=== PATIENT | male | born 1960 | race Caucasian/White ===

== ENCOUNTER → 2017-04-16 | Outpatient (CLI) | payer OTHER | END | disposition home or self-care (01) | LOC: KCIC 11:52 | DX: J84.10 Pulmonary fibrosis, unspecified (principal); F17.200 Nicotine dependence, unspecified, uncomplicated | CPT/HCPCS: 71046 ==

== ENCOUNTER → 2017-07-27 | Outpatient (CLI) | payer OTHER ==
[2017-07-27] MEDS: IOHEXOL 300 MG/ML 100ML VIAL. IV (11:25)
== END | disposition home or self-care (01) ==
LOC: KCIC CT 10:52
DX: J43.9 Emphysema, unspecified (principal); F17.200 Nicotine dependence, unspecified, uncomplicated
CPT/HCPCS: 71260; Q9967

== ENCOUNTER → 2017-08-09 | Day surgery (SDC) | payer OTHER ==
[~2017-08-09] MED LIST: PROPOFOL 20 ML IV
[2017-08-09] MEDS: ALBUTEROL SULFATE 2.5 MG/3 ML NEBU. IH (12:27)
[2017-08-09] MEDS: IV RINGERS,LACTATED 1000ML 1,000 ML IV (12:35)
[2017-08-09 12:47] LABS: ADD MAN DIFF? NO
[2017-08-09 12:55] LABS: BASO # 0.1 x10^3/uL (0.0-0.2); BASO % 1 % (0-3); EOS # 0.4 x10^3/uL (0.0-0.7); EOS % 5 % (0-3); LYMPH # 2.3 x10^3/uL (1.0-4.8); LYMPH % 30 % (24-48); MEAN CORPUSCULAR HEMOGLOBIN 30 pg (25-35); MEAN CORPUSCULAR HGB CONC 35 g/dL (31-37); MEAN CORPUSCULAR VOLUME 86 fL (79-100); MONO # 0.8 x10^3/uL (0.0-1.1); MONO % 10 % (0-9); NEUT # 4.1 x10^3uL (1.8-7.7); NEUT % 54 % (31-73); PLATELET COUNT 326 x10^3/uL (140-400); RED BLOOD COUNT 4.32 x10^6/uL (4.30-5.70); RED CELL DISTRIBUTION WIDTH 13.5 % (11.5-14.5); WHITE BLOOD COUNT 7.6 x10^3/uL (4.0-11.0)
[2017-08-09 13:09] LABS: PARTIAL THROMBOPLASTIN TIME 27 SEC (24-38); PROTHROMBIN TIME PATIENT 12.6 SEC (11.7-14.0)
== END | disposition home or self-care (01) ==
LOC: SURG 11:53
DX: C34.91 Malignant neoplasm of unspecified part of right bronchus or lung (principal); F32.9 Major depressive disorder, single episode, unspecified; F41.9 Anxiety disorder, unspecified; Z98.890 Other specified postprocedural states; Z87.891 Personal history of nicotine dependence
CPT/HCPCS: 31622; 31623; 31624; 31625; 31629; 36415; 85025; 85610; 85730; 88104; 88112; 88173; 88305; 88341; 88342; 94640; J2704; J7613

== ENCOUNTER → 2017-08-23 | Outpatient (CLI) | payer OTHER ==
[2017-08-23] MEDS: GADOBUTROL 7.5 MMOL/7.5 ML VIAL IV (09:50)
== END | disposition home or self-care (01) ==
LOC: MRI 08:31
DX: Z13.5 Encounter for screening for eye and ear disorders (principal); C34.90 Malignant neoplasm of unspecified part of unspecified bronchus or lung; R59.9 Enlarged lymph nodes, unspecified
CPT/HCPCS: 70030; 70553; 78815; A9552; A9585

== ENCOUNTER → 2017-08-27 | Outpatient (CLI) | payer OTHER ==
[~2017-08-27] MED LIST changes: +LIDOCAINE 2%/EPI 1:100,000 20 ML VIAL.; +MIDAZOLAM HCL/PF 5 MG/5 ML VIAL.; -PROPOFOL 20 ML IV; +fentaNYL PF VIAL 100 MCG/2 ML VIAL
[2017-08-27 07:33] LABS: ADD MAN DIFF? NO
[2017-08-27 07:41] LABS: BASO # 0.1 x10^3/uL (0.0-0.2); BASO % 1 % (0-3); EOS # 0.5 x10^3/uL (0.0-0.7); EOS % 6 % (0-3); HEMATOCRIT 37.6 % (39.0-53.0); HEMOGLOBIN 13.1 g/dL (13.0-17.5); LYMPH # 2.6 x10^3/uL (1.0-4.8); LYMPH % 29 % (24-48); MEAN CORPUSCULAR HEMOGLOBIN 30 pg (25-35); MEAN CORPUSCULAR HGB CONC 35 g/dL (31-37); MEAN CORPUSCULAR VOLUME 86 fL (79-100); MONO # 0.9 x10^3/uL (0.0-1.1); MONO % 10 % (0-9); NEUT # 4.8 x10^3uL (1.8-7.7); NEUT % 54 % (31-73); PLATELET COUNT 317 x10^3/uL (140-400); RED BLOOD COUNT 4.39 x10^6/uL (4.30-5.70); RED CELL DISTRIBUTION WIDTH 13.5 % (11.5-14.5); WHITE BLOOD COUNT 8.8 x10^3/uL (4.0-11.0)
[2017-08-27 08:17] LABS: INR 1.1 (0.8-1.1); PROTHROMBIN TIME PATIENT 13.5 SEC (11.7-14.0)
[2017-08-27] MEDS: LIDOCAINE 2%/EPI 1:100,000 20 ML VIAL. IJ (09:26)
[2017-08-27] MEDS: fentaNYL PF VIAL 100 MCG/2 ML VIAL IV (09:27)
[2017-08-27] MEDS: MIDAZOLAM HCL/PF 5 MG/5 ML VIAL. IV (09:27)
== END | disposition home or self-care (01) ==
LOC: INTRAD 06:57
DX: Z45.2 Encounter for adjustment and management of vascular access device (principal); C34.91 Malignant neoplasm of unspecified part of right bronchus or lung; F32.9 Major depressive disorder, single episode, unspecified; F41.9 Anxiety disorder, unspecified; Z85.118 Personal history of other malignant neoplasm of bronchus and lung; Z86.010 Personal history of colon polyps; Z98.890 Other specified postprocedural states; Z87.891 Personal history of nicotine dependence
CPT/HCPCS: 36415; 36561; 76937; 77001; 85025; 85610; 99152; 99153; C1751; C1788; C1892; C1894; J0690; J2250; J3010; J3490

== ENCOUNTER → 2017-11-20 | Outpatient (CLI) | payer OTHER ==
[2017-08-27 10:30] VITALS: BP 101/57
[~2017-11-20] MED LIST changes: +ASCO-72 PO; +CITA40TA5 PO; -LIDOCAINE 2%/EPI 1:100,000 20 ML VIAL.; -MIDAZOLAM HCL/PF 5 MG/5 ML VIAL.; +MULT-658 PO; +ONDA8TAB9 PO; +PROAIR HFA8.5 GM INH; +RANI150T21 PO; +VITA1CAP PO; -fentaNYL PF VIAL 100 MCG/2 ML VIAL
[2017-11-20 09:24] LABS: BASO # 0.1 x10^3/uL (0.0-0.2); BASO % 2 % (0-3); EOS # 0.1 x10^3/uL (0.0-0.7); EOS % 2 % (0-3); HEMATOCRIT 28.2 % (39.0-53.0); LYMPH # 0.9 x10^3/uL (1.0-4.8); LYMPH % 16 % (24-48); MEAN CORPUSCULAR HEMOGLOBIN 31 pg (25-35); MEAN CORPUSCULAR HGB CONC 35 g/dL (31-37); MEAN CORPUSCULAR VOLUME 87 fL (79-100); MONO # 1.3 x10^3/uL (0.0-1.1); MONO % 23 % (0-9); NEUT # 3.4 x10^3uL (1.8-7.7); NEUT % 57 % (31-73); PLATELET COUNT 330 x10^3/uL (140-400); RED BLOOD COUNT 3.26 x10^6/uL (4.30-5.70); WHITE BLOOD COUNT 5.9 x10^3/uL (4.0-11.0)
[2017-11-20 09:51] LABS: ALBUMIN 3.6 g/dL (3.4-5.0); CALCIUM 8.7 mg/dL (8.5-10.1); CREATININE 1.1 mg/dL (0.7-1.3); GFR 69.2; POTASSIUM 4.3 mmol/L (3.5-5.1); TOTAL BILIRUBIN 0.2 mg/dL (0.2-1.0); TOTAL PROTEIN 7.1 g/dL (6.4-8.2)
[2017-11-20 13:16] LABS: % BANDS 5 % (0-9); % BASOS 3 % (0-3); % EOS 1 % (0-5); % LYMPHS 12 % (24-48); % METAS 1 % (0-0); % MONOS 20 % (0-10); % SEGS 58 % (35-66)
[2017-11-20 13:17] LABS: ANISOCYTOSIS SLIGHT; PLT ESTIMATE ADEQUATE (ADEQUATE)
== END | disposition home or self-care (01) ==
LOC: LAB 09:02
PROVIDERS: ATTEND Internal Medicine Hematology & Oncology
DX: C34.91 Malignant neoplasm of unspecified part of right bronchus or lung (principal); J43.9 Emphysema, unspecified; Z87.891 Personal history of nicotine dependence; Z85.118 Personal history of other malignant neoplasm of bronchus and lung; Z86.010 Personal history of colon polyps
CPT/HCPCS: 36415; 80053; 85007; 85025

== ENCOUNTER → 2017-12-05 | Outpatient (CLI) | payer OTHER ==
[2017-08-27 10:30] VITALS: BP 101/57
[~2017-12-05] MED LIST changes: +CONTRAST GIVEN. MC PRN; +IOHEXOL 300 MG/ML 100ML VIAL. IV ONE
--- NOTE | 2017-12-05 13:30 | RAD ---
CT of the chest with IV contrast compared to similar examination dated July 27, 2017 for lung cancer follow-up. TECHNIQUE: Contiguous helical 5 mm axial images are obtained from the thoracic inlet to the base of the diaphragm following administration of IV contrast. Sagittal coronal reformations are evaluated. FINDINGS: Port-A-Cath is present from a left IJ approach and is new. There has been a positive response to therapy, with significant involution of the subcarinal and right hilar conglomerate adenopathy. Soft tissue component in the right hilar region is seen best on axial image #35, and measures 1.2 x 1.0 cm. Previously this area measured 3.0 x 2.0 cm roughly. The subcarinal soft tissue component measures 1.7 x 0.7 cm today, compared with the prior measurement of 2.8 x 2.0 cm. No new adenopathy is seen. Within the lungs, previously noted bullous emphysematous changes are again evident. There is redemonstration of an 8 mm calcified granuloma in the peripheral aspect of the right lower lobe on axial image #32. At least 3 other peripheral 5 mm solid nodules are redemonstrated as well, one of which is in the right lower lobe on axial image #39, second which is pleural-based in the same location on axial image #43, and the third of which is peripheral in the left lower lung on axial image 52. These are all stable, the nodule on axial image #39 demonstrates a central punctate calcification suggesting benignity. No new lung nodules or masses are identified. Within the left lobe of the liver laterally, there is redemonstration of a focal avidly enhancing 2 cm masslike lesion. Atypical hemangioma versus isolated perfusion defect is suspected. This does not have the typical appearance of a metastasis, though metastatic disease cannot be definitively ruled out. Further evaluation with abdominal ultrasound or the use of three-phase CT at next follow-up may clarify. Remaining visualized upper abdominal organs are grossly unremarkable. No significant osseous abnormalities identified. IMPRESSION: 1. Positive response to therapy with significant involution of the right hilar and subcarinal lymphadenopathy/primary mass. No new adenopathy is identified. 2. Multiple 5 mm pulmonary nodules bilaterally which are stable. These exist on a background of known granulomatous disease, and at least one nodule contains a central punctate calcification which is typical of benign lesions. Recommend attention to these abnormalities on follow-up CT scans. 3. 2 cm avidly enhancing masslike lesion within the left lobe of the liver, also stable. Appearance is not typical of metastatic disease, however metastasis cannot be excluded. Atypical hemangioma or isolated perfusion abnormality is suspected. Consider further evaluation with abdominal ultrasound or follow-up with three-phase CT scan for clarity. PQRS Compliance Statement: One or more of the following individualized dose reduction techniques were utilized for this examination: 1. Automated exposure control 2. Adjustment of the mA and/or kV according to patient size 3. Use of iterative reconstruction technique Electronically signed by: Tex Thrasher MD (12/05/2017 1:27 PM) [email or web address]
== END | disposition home or self-care (01) ==
LOC: CT 09:15
PROVIDERS: ATTEND Internal Medicine Hematology & Oncology
DX: C34.91 Malignant neoplasm of unspecified part of right bronchus or lung (principal); D71 Functional disorders of polymorphonuclear neutrophils; K76.89 Other specified diseases of liver; J43.9 Emphysema, unspecified; R91.8 Other nonspecific abnormal finding of lung field; Z87.891 Personal history of nicotine dependence; Z85.118 Personal history of other malignant neoplasm of bronchus and lung; Z86.010 Personal history of colon polyps
CPT/HCPCS: 71260; Q9967

== ENCOUNTER → 2018-03-15 | Outpatient (CLI) | payer OTHER ==
[2017-08-27 10:30] VITALS: BP 101/57
[~2018-03-15] MED LIST changes: +ALBU2.5V8 INH; -PROAIR HFA8.5 GM INH; +PROC10TA57 PO
--- NOTE | 2018-03-15 16:13 | RAD ---
Examination: CT chest with IV contrast HISTORY: History of lung cancer follow-up ORIF comparison: 12/05/2017 TECHNIQUE: Axial CT images were performed with IV contrast. Coronal and sagittal reformats are performed Exposure: One or more of the following individualized dose reduction techniques were utilized for this examination: 1. Automated exposure control 2. Adjustment of the mA and/or kV according to patient size 3. Use of iterative reconstruction technique FINDINGS: The visualized thyroid gland grossly appears unremarkable with central airways are patent. The heart size grossly appears unremarkable. The ascending aorta measures 3.6 cm in transverse dimension. No radiologically significant mediastinal or hilar lymphadenopathy visualized. Moderate lung emphysematous changes. Scattered lung nodules identified in the bilateral lungs malleolus appears similar to prior exam except the left lower lobe lung nodule which now measures 5 mm compared to prior exam where it measured 3 mm. No evidence of pleural effusion or pneumothorax. Enhancing lesion identified in the left lobe of the liver measuring 1.7 cm similar to prior exam. There is a hypodensity identified in the left lobe of the liver adjacent to falciform ligament probably focal fat however evaluation is limited. Mild decreased attenuation noted in the liver likely hepatic steatosis Visualized adrenal glands grossly appears unremarkable Mild degenerative changes thoracic spine. Small superior endplate Schmorl's were identified at T6 vertebral level. Port-A-Cath is identified. IMPRESSION: 1. No evidence of recurrence identified. No obvious lymphadenopathy identified. 2. Multiple bilateral pulmonary nodules identified more or less similar to prior exam except the left lower lobe lung nodule which is slightly increased in size measuring 5 mm (compared to prior exam where it measures 3 mm). Close interval follow-up examination is recommended. 3. Lung emphysematous changes. 4. A 1.7 cm enhancement identified in the left lobe of the liver similar to prior exam. There is a 2 cm hypodensity identified in the left lobe of the liver adjacent to falciform ligament could be focal fat. Consider ultrasound liver for further evaluation. Electronically signed by: Romeo Johnston MD (03/15/2018 3:11 PM) [place] [id number]
== END | disposition home or self-care (01) ==
LOC: CT 08:54
PROVIDERS: ATTEND Internal Medicine Hematology & Oncology
DX: C34.90 Malignant neoplasm of unspecified part of unspecified bronchus or lung (principal); R91.8 Other nonspecific abnormal finding of lung field; M47.814 Spondylosis without myelopathy or radiculopathy, thoracic region; Z87.891 Personal history of nicotine dependence
CPT/HCPCS: 71260; Q9967

== ENCOUNTER → 2018-04-01 | Outpatient (CLI) | payer OTHER ==
[2017-08-27 10:30] VITALS: BP 101/57
[~2018-04-01] MED LIST changes: -CONTRAST GIVEN. MC PRN; +GABA300C18 PO; +GADOBUTROL 7.5 MMOL/7.5 ML VIAL IV ONE; -IOHEXOL 300 MG/ML 100ML VIAL. IV ONE; +RANI-376 PO; -RANI150T21 PO
--- NOTE | 2018-04-01 13:16 | RAD ---
MRI of the Brain without and with Contrast 04/01/2018 Clinical History: Lung cancer. Technique: Unenhanced T1-weighted sagittal and axial and FLAIR, T2-weighted, gradient echo and diffusion-weighted axial images of the brain were obtained. After the intravenous administration of 6 cc of Gadavist, enhanced T1-weighted axial, sagittal and coronal images of the brain were obtained. Findings: Comparison studies dated 08/23/2017. There is mild generalized parenchymal atrophy. Patchy and small scattered areas of abnormally increased signal intensity are seen within the periventricular and subcortical white matter of both cerebral hemispheres along with the aniceto on the FLAIR and T2-weighted images consistent with areas of very mild small vessel ischemic disease, unchanged. No acute parenchymal abnormality is seen. No abnormal area of contrast enhancement is noted. No extra-axial fluid collection is seen. There is no MRI evidence of acute ischemia/infarction. Mild mucosal thickening is seen scattered throughout the paranasal sinuses. Normal flow voids are seen within the major vascular structures surrounding the brain parenchyma. Impression: No acute parenchymal abnormality is seen. There is no MRI evidence of metastatic disease involving the brain parenchyma. Electronically signed by: Mansoor Feliciano MD (04/01/2018 1:11 PM) [email or web address]
== END | disposition home or self-care (01) ==
LOC: MRI 10:45
PROVIDERS: ATTEND Internal Medicine Hematology & Oncology
DX: C34.90 Malignant neoplasm of unspecified part of unspecified bronchus or lung (principal); R16.0 Hepatomegaly, not elsewhere classified
CPT/HCPCS: 70553; A9585

== ENCOUNTER → 2018-05-16 | Day surgery (SDC) | payer OTHER ==
[~2018-05-16] MED LIST changes: -GADOBUTROL 7.5 MMOL/7.5 ML VIAL IV ONE; +IV RINGERS,LACTATED 1000ML 1,000 ML IV SCH; +PROPOFOL 40 ML IV ONE
[2018-05-16 13:13] VITALS: BP 89/54
== END | disposition home or self-care (01) ==
LOC: ENDOS 11:23
PROVIDERS: ATTEND Internal Medicine Gastroenterology
DX: Z12.11 Encounter for screening for malignant neoplasm of colon (principal); K64.0 First degree hemorrhoids; F32.9 Major depressive disorder, single episode, unspecified; Z85.118 Personal history of other malignant neoplasm of bronchus and lung; Z86.010 Personal history of colon polyps; Z86.19 Personal history of other infectious and parasitic diseases; Z87.19 Personal history of other diseases of the digestive system; Z82.49 Family history of ischemic heart disease and other diseases of the circulatory system; F17.210 Nicotine dependence, cigarettes, uncomplicated; Z79.899 Other long term (current) drug therapy; Z90.49 Acquired absence of other specified parts of digestive tract; Z98.890 Other specified postprocedural states
CPT/HCPCS: 45378; J2704

== ENCOUNTER → 2018-06-13 | Outpatient (CLI) | payer OTHER ==
[2018-05-16 13:13] VITALS: BP 89/54
[~2018-06-13] MED LIST changes: +IOHEXOL 240 MG/ML 50ML VIAL. PO ONE; +IOHEXOL 300 MG/ML 100ML VIAL. IV ONE; -IV RINGERS,LACTATED 1000ML 1,000 ML IV SCH; -PROPOFOL 40 ML IV ONE
--- NOTE | 2018-06-13 13:51 | RAD ---
Examination: CT chest abdomen with IV contrast HISTORY: History of lung cancer, follow-up COMPARISON: 03/07/2018 TECHNIQUE: Axial CT images of the chest abdomen with IV contrast. Coronal and sagittal reformats are performed Exposure: One or more of the following individualized dose reduction techniques were utilized for this examination: 1. Automated exposure control 2. Adjustment of the mA and/or kV according to patient size 3. Use of iterative reconstruction technique. Findings The visualized thyroid gland grossly appears unremarkable. The central airways are patent The heart size grossly appears unremarkable The ascending aorta measures 3.3 cm in transverse dimension. No radiologically significant mediastinal lymphadenopathy is identified. There is minimal soft tissue prominence identified in the right hilar region. There is a 6 mm nodule identified in the right lower lobe of the lung similar to prior exam. Moderate lung emphysematous changes again identified. Scattered nodules identified in the bilateral lungs identified with the largest measuring 6 mm in the left lower lobe of the lung similar to prior exam. No evidence of pleural effusion or pneumothorax. The previously visualized 1.2 cm enhancing density identified in the left lobe of the liver is is unchanged, best visualized on series 2 image 63.. There is mild decreased attenuation noted throughout the liver likely hepatic steatosis. The visualized spleen, adrenals grossly appears unremarkable The gallbladder demonstrates small gallstones within. The stomach is mildly distended. The visualized pancreas grossly appears unremarkable. The adrenal grossly appears unremarkable The small bowel is nondilated. The visualized colon grossly appears unremarkable Mild superior endplate Schmorl's node identified at the 6 vertebral level similar to prior exam. Mild degenerative changes thoracolumbar spine. IMPRESSION: 1. Minimal soft tissue prominence identified in the right hilar region, nonspecific could be hilar lymphadenopathy or scarring slightly prominent compared to prior exam however early recurrence is not completely excluded. Recommend PET CT scan for further evaluation. 2. Scattered pulmonary nodules similar to prior exam. 3. Lung emphysematous changes. 4. Previously visualized enhancing density identified in the left lobe of the liver is is unchanged. Electronically signed by: Romeo Johnston MD (06/13/2018 1:49 PM) [email or web address]
== END | disposition home or self-care (01) ==
LOC: CT 08:22
PROVIDERS: ATTEND Internal Medicine Hematology & Oncology
DX: J43.9 Emphysema, unspecified (principal); R91.8 Other nonspecific abnormal finding of lung field; K80.20 Calculus of gallbladder without cholecystitis without obstruction; R14.0 Abdominal distension (gaseous); R16.0 Hepatomegaly, not elsewhere classified; Z85.118 Personal history of other malignant neoplasm of bronchus and lung
CPT/HCPCS: 71260; 74160; Q9966; Q9967

== ENCOUNTER → 2018-06-20 | Outpatient (CLI) | payer OTHER ==
[2018-05-16 13:13] VITALS: BP 89/54
[~2018-06-20] MED LIST changes: +GADOBUTROL 7.5 MMOL/7.5 ML VIAL IV ONE; -IOHEXOL 240 MG/ML 50ML VIAL. PO ONE; -IOHEXOL 300 MG/ML 100ML VIAL. IV ONE
--- NOTE | 2018-06-20 12:14 | RAD ---
MRI Brain with and without contrast History: Lung cancer Technique: Multiplanar, multi sequential pre and postcontrast MR imaging was performed of the brain. Comparison: April 01, 2018 Findings: There is no evidence of recent infarct or cytotoxic edema. The ventricles, sulci, and cisterns are within normal limits in size and configuration. There is no significant midline shift, intraaxial mass effect, or focal abnormal extra-axial fluid collection. There is again some scattered minimal T2 and FLAIR hyperintense abnormality of the supratentorial parenchyma bilaterally, not significantly changed. There is no nodular parenchymal or leptomeningeal enhancement. There is preservation of the major intracranial flow-voids at the skull base. The cerebellar tonsils are normal in location. There is no significant abnormality of the pineal gland or pituitary gland. There is negligible patchy ethmoid air cell mucosal thickening. Mastoid air cells are not significantly pneumatized. There is preserved marrow signal of the clivus. There is slightly disconjugate gaze. There is right nicholas bullosa. Impression: 1. There is no new abnormal intracranial enhancement. There is again some scattered minimal T2 and FLAIR hyperintense signal abnormality of the supratentorial parenchyma, nonspecific findings possibly due to sequela of chronic microvascular ischemic disease. Electronically signed by: Torin Grimes MD (06/20/2018 12:12 PM) [email or web address]
--- NOTE | 2018-06-20 16:44 | RAD ---
FDG tumor localization scan, PET/CT, 06/20/2018: History: Small cell lung cancer Following IV injection of 15.4 mCi of 18 F-FDG, imaging was performed from the skull base to the proximal thighs. The noncontrast CT component was performed for attenuation correction and anatomic localization purposes rather than for primary diagnosis. The patient's blood glucose level at the time of injection was 77 MG/DL. Comparison is made to a study from 08/23/2017. Physiologic activity is present in the neck. No hypermetabolic neck lesion is seen. The hypermetabolic right hilar mass has regressed. No discrete mass is currently seen on the CT component. There is only minimal streaky increased density along the posterior aspect of the right hilum which is probably post therapeutic. There is mild low level FDG uptake at the right hilum with a SUV of 4 0.0. The previously seen subcarinal adenopathy has resolved. No new mediastinal or hilar adenopathy is seen. Several tiny bilateral pulmonary nodules are unchanged. They do not demonstrate abnormal FDG uptake. Normal GI tract and urinary tract activity is present in the abdomen and pelvis. No hypermetabolic abdominal or pelvic process is seen. Incidental CT findings include the presence of gallstones. A left Port-A-Cath extends into the superior vena cava. IMPRESSION: 1. Favorable response to therapy with only mild residual low level FDG uptake at the right hilum. Hypermetabolic subcarinal adenopathy has resolved. 2. No FDG-PET evidence of metastatic disease.
== END | disposition home or self-care (01) ==
LOC: MRI 15:40
PROVIDERS: ATTEND Internal Medicine Hematology & Oncology
DX: R91.8 Other nonspecific abnormal finding of lung field (principal); K76.89 Other specified diseases of liver; K80.20 Calculus of gallbladder without cholecystitis without obstruction; Z85.118 Personal history of other malignant neoplasm of bronchus and lung
CPT/HCPCS: 70553; 78815; A9552; A9585

== ENCOUNTER → 2018-09-11 | Outpatient (CLI) | payer OTHER ==
[2018-05-16 13:13] VITALS: BP 89/54
[~2018-09-11] MED LIST changes: -GADOBUTROL 7.5 MMOL/7.5 ML VIAL IV ONE; +GADOTERATE 7.5 MMOL/15ML VIAL. IVP ONE; +IOHEXOL 300 MG/ML 100ML VIAL. IV ONE
--- NOTE | 2018-09-11 12:23 | RAD ---
MRI of the Brain without and with Contrast 09/11/2018 Clinical History: Lung cancer with dizziness. Technique: Unenhanced T1-weighted sagittal and axial and FLAIR, T2-weighted, gradient echo and diffusion-weighted axial images of the brain were obtained. After the intravenous administration of 15 cc of Dotarem, enhanced T1-weighted axial, sagittal and coronal images of the brain were obtained. Findings: Comparison study is dated 06/20/2018. There is mild generalized parenchymal atrophy. Patchy and several small focal areas of abnormally increased signal intensity are seen within the periventricular and subcortical white matter of both cerebral hemispheres on the FLAIR and T2-weighted images consistent most likely with areas of very mild small vessel ischemic disease. A 7 mm enhancing nodule is seen involving the superior right frontal lobe, posteriorly. This is new since the previous examination. This most likely represents a small metastasis. There is mild surrounding edema without evidence of significant mass effect. No additional enhancing mass lesion is seen. No extra-axial fluid collection is seen. There is no MRI evidence of acute ischemia/infarction. The paranasal sinuses are essentially clear. Normal flow voids are seen within the major vascular structures surrounding the brain parenchyma. Impression: A 7 mm enhancing nodule is seen involving the right frontal lobe which is new since the previous examination. This most likely represents a brain metastasis. There is mild surrounding edema without evidence of significant mass effect. No additional metastasis is seen. Electronically signed by: Mansoor Feliciano MD (09/11/2018 12:20 PM) [email or web address]
--- NOTE | 2018-09-11 14:27 | RAD ---
Examination: CT CHEST W/CONTRAST History: CT chest abdomen 06/13/2018, 03/07/2018 CT chest with contrast Comparison/Correlation: Lung cancer, liver mass Findings: Axial images of chest were obtained following IV contrast. Sagittal and coronal reformatted images were provided. Left-sided infusion port catheter tip terminates within the superior vena cava. Diffuse emphysematous involvement of the lung singh is noted. There is no pleural or pericardial effusion. No enlarged thoracic lymph nodes. Right perihilar interstitial thickening is present. Minimal soft tissue density posterior to the right hilum described on the previous exam is again seen on axial image 34 of series 2 and measures 1.2 cm x 0.7 cm. There is no new well-defined nodule or mass. A 0.3 cm diameter nodule at the lateral left base on axial image 51 is present. It is unchanged. Calcified granuloma in the right mid thoracic paraspinal region is present. Larger calcified granuloma the same level laterally is also evident within the right lower lobe. Bony structures are unremarkable. Hypervascular lesion is present involving the inferior aspect of the left hepatic lobe at the inferior aspect of the lateral segment measuring 2.2 cm x 1 cm. Cholelithiasis is present. Impression: Minimal soft tissue density along the posterior margin of the right hilum is unchanged. No change in left hepatic lobe hypervascular lesion. No new infiltrates or suspicious nodules. Few small pulmonary nodules present are stable. Cholelithiasis. PQRS Compliance Statement: One or more of the following individualized dose reduction techniques were utilized for this examination: 1. Automated exposure control 2. Adjustment of the mA and/or kV according to patient size 3. Use of iterative reconstruction technique Electronically signed by: Monroe Castaneda MD (09/11/2018 2:24 PM) [id number]
== END | disposition home or self-care (01) ==
LOC: MRI 10:43
PROVIDERS: ATTEND Internal Medicine Hematology & Oncology
DX: C34.31 Malignant neoplasm of lower lobe, right bronchus or lung (principal); G31.89 Other specified degenerative diseases of nervous system; J43.9 Emphysema, unspecified; J84.10 Pulmonary fibrosis, unspecified; K76.89 Other specified diseases of liver; R91.8 Other nonspecific abnormal finding of lung field; K80.20 Calculus of gallbladder without cholecystitis without obstruction; R42 Dizziness and giddiness
CPT/HCPCS: 70553; 71260; A9575; Q9967

== ENCOUNTER → 2018-11-15 | Outpatient (CLI) | payer OTHER ==
[2018-05-16 13:13] VITALS: BP 89/54
[~2018-11-15] MED LIST changes: +CONTRAST GIVEN. MC PRN; -GADOTERATE 7.5 MMOL/15ML VIAL. IVP ONE
--- NOTE | 2018-11-15 13:55 | RAD ---
PQRS Compliance Statement: One or more of the following individualized dose reduction techniques were utilized for this examination: 1. Automated exposure control 2. Adjustment of the mA and/or kV according to patient size 3. Use of iterative reconstruction technique CT chest with contrast 11/15/2018 INDICATION: Small cell lung cancer. COMPARISON: CT chest 09/11/2018. TECHNIQUE: Multiple axial CT images of the chest were obtained after the intravenous administration of nonionic contrast. Coronal and sagittal reformats are provided. FINDINGS: Thyroid gland is normal in appearance. Left chest wall infusion port catheter is identified with the distal tip terminating in the superior vena cava. Soft tissue density along the posterior aspect of the right hilum may represent a right hilar lymph node measuring 13 x 10 mm, stable from prior examination. No new or enlarging pathologically enlarged thoracic lymph nodes. Thoracic esophagus is normal in course and caliber. Mild paraseptal pulmonary emphysema is identified. 4 mm solid noncalcified pulmonary nodule is stable in the right middle lobe (series 2, image 44). Stable 4 mm subpleural solid noncalcified pulmonary nodule in the medial right lower lobe (series 2, image 32). Partly calcified nodule in the posterior segment right lower lobe measures 5 mm, stable. Calcified granuloma is identified in the right upper lobe measuring 9 mm, stable. No new or enlarging solid noncalcified pulmonary nodules. Biapical pleural-parenchymal scarring is identified. There are no pleural effusions. No pulmonary vascular congestion or pneumothorax. Focal hypervascular lesion in segment II measures 11 mm, not definitively seen on the prior examination. Additional hypervascular lesion is identified in segment III measuring 17 mm, stable. Differential considerations would include a flash fill hemangioma. No adrenal nodules are identified. No suspicious osseous abnormality is identified. Superior endplate Schmorl's node is identified at T6 with minimal height loss, likely chronic given stability. IMPRESSION: 1. Stable right hilar lymph node, previously described as soft tissue density posterior to the right hilum. 2. Segment abnormal 3 hepatic lesion is hypervascular and may represent a flash fill hemangioma. This finding is atypical for metastatic primary lung malignancy. Additional segment 2 hypervascular lesion is identified measuring 11 mm. Consideration may be given for transient hepatic attenuation differences. Further catheterization with MRI may be of benefit. 3. No new or enlarging solid noncalcified pulmonary nodules. Electronically signed by: Yamile Mueller MD (11/15/2018 1:52 PM) -[email or web address]
--- NOTE | 2018-11-15 17:17 | RAD ---
SHOULDER 2+V LEFT History: Left shoulder pain No evidence of acute fracture. No evidence of bone destruction joint spaces are intact without evidence of dislocation. Left chest wall port is partially seen. IMPRESSION: No evidence of acute bone abnormality. Electronically signed by: Fidel Long MD (11/15/2018 5:14 PM) [email or web address]
== END | disposition home or self-care (01) ==
LOC: CT 10:58
PROVIDERS: ATTEND Internal Medicine Hematology & Oncology
DX: C34.31 Malignant neoplasm of lower lobe, right bronchus or lung (principal); C34.11 Malignant neoplasm of upper lobe, right bronchus or lung; M25.512 Pain in left shoulder
CPT/HCPCS: 71260; 73030; Q9967

== ENCOUNTER → 2018-12-12 | Outpatient (CLI) | payer OTHER ==
[2018-05-16 13:13] VITALS: BP 89/54
[~2018-12-12] MED LIST changes: -CONTRAST GIVEN. MC PRN; +ETOP20VI2 IV; +GADOTERATE 7.5 MMOL/15ML VIAL. IVP ONE; -IOHEXOL 300 MG/ML 100ML VIAL. IV ONE; +carboplatin IV
--- NOTE | 2018-12-12 11:00 | RAD ---
MRI Brain with and without contrast History: Lung cancer Technique: Multiplanar, multi sequential pre and postcontrast MR imaging was performed of the brain. Comparison: October 17, 2018 Findings: Previously seen enhancing lesion of the right frontal lobe is much smaller, now only very faint enhancement in greatest dimension about 0.5 cm transverse by 0.2 cm AP by 0.3 cm CC. Previously seen associated edema has resolved. No new abnormal intracranial enhancement is identified. Scattered very mild T2 and FLAIR hyperintense signal abnormality of the supratentorial parenchyma bilaterally is unchanged. Ventricular size is stable. There is no evidence of recent infarct. Increased CSF signal the optic nerve sheaths bilaterally is unchanged. Paranasal sinuses are overall aerated. Impression: 1. Previously seen enhancing nodule of the right frontal lobe is much smaller, now only minimal residual enhancement present. There has been interval resolution of previously seen associated edema. No new abnormal intracranial enhancement is identified. Electronically signed by: Torin Grimes MD (12/12/2018 10:57 AM) [email or web address]
== END | disposition home or self-care (01) ==
LOC: MRI 09:18
PROVIDERS: ATTEND Radiology Radiation Oncology
DX: C34.31 Malignant neoplasm of lower lobe, right bronchus or lung (principal); C79.31 Secondary malignant neoplasm of brain
CPT/HCPCS: 70553; A9575

== ENCOUNTER → 2019-01-03 | Outpatient (CLI) | payer OTHER ==
[2018-05-16 13:13] VITALS: BP 89/54
[~2019-01-03] MED LIST changes: -GADOTERATE 7.5 MMOL/15ML VIAL. IVP ONE; +IOHEXOL 240 MG/ML 50ML VIAL. PO ONE; +IOHEXOL 300 MG/ML 100ML VIAL. IV ONE
--- NOTE | 2019-01-03 16:42 | RAD ---
Examination: CT CHEST ABDOMEN W/CONTRAST History: Lung cancer Comparison/Correlation: 11/15/2016 CT chest with contrast, 06/05/2018 CT chest and abdomen with contrast Findings: Axial images of the chest and abdomen were obtained following IV contrast. Oral contrast was administered. Sagittal and coronal reformatted images were provided. Left-sided infusion port is again seen with associated catheter. No enlarged thoracic lymph nodes. No pleural or pericardial effusion. Calcified granuloma at the right mid thoracic levels seen. Interstitial thickening about the right hilum is similar to the previous exam. Emphysematous involvement of the lung singh noted. At the lateral left basilar costophrenic sulcus region anteriorly, there is a 0.3 cm diameter nodule has remained stable. No new pulmonary nodule or mass. Minimal soft tissue density along the posterior margin of the right hilum on axial image 33 is unchanged. Thoracic aorta is unremarkable. The left hepatic dome hypervascular lesion and segment 3 hypervascular lesions are similar upon correlation with prior exams likely representing flash filling hemangiomas. No new hepatic lesion. Spleen, pancreas, adrenal glands, and kidneys are normal. Cholelithiasis is noted. No enlarged abdominal lymph nodes. No extraluminal gas or upper abdominal ascites. Bony structures are unremarkable. Impression: No suspicious change. No findings to suggest interval metastases or recurrence. Cholelithiasis. PQRS Compliance Statement: One or more of the following individualized dose reduction techniques were utilized for this examination: 1. Automated exposure control 2. Adjustment of the mA and/or kV according to patient size 3. Use of iterative reconstruction technique Electronically signed by: Monroe Castaneda MD (01/03/2019 4:39 PM) [facility]
== END | disposition home or self-care (01) ==
LOC: CT 11:06
PROVIDERS: ATTEND Internal Medicine Hematology & Oncology
DX: C34.90 Malignant neoplasm of unspecified part of unspecified bronchus or lung (principal); J84.10 Pulmonary fibrosis, unspecified; J43.9 Emphysema, unspecified; K80.20 Calculus of gallbladder without cholecystitis without obstruction; K76.89 Other specified diseases of liver
CPT/HCPCS: 71260; 74160; Q9966; Q9967

== ENCOUNTER → 2019-03-06 | Outpatient (CLI) | payer OTHER ==
[2018-05-16 13:13] VITALS: BP 89/54
[~2019-03-06] MED LIST changes: +GADOTERATE 7.5 MMOL/15ML VIAL. IVP ONE; -IOHEXOL 240 MG/ML 50ML VIAL. PO ONE; -IOHEXOL 300 MG/ML 100ML VIAL. IV ONE
--- NOTE | 2019-03-06 11:18 | RAD ---
MRI Brain with and without contrast History: Lung cancer Technique: Multiplanar, multi sequential pre and postcontrast MR imaging was performed of the brain. Comparison: December 12, 2018 Findings: As seen on image 19 series 10, sagittal image 20 series 12, and coronal image 15 series 11, there is mild residual enhancement of previously seen right frontal lobe parenchymal enhancing lesion with adjacent mild volume loss. Focus of enhancement measures about 2 to 3 mm transverse by about 2 mm CC by 2 mm AP, slightly less apparent than previously. There is associated very mild T2 and FLAIR hyperintense signal which is similar. There is no new abnormal intracranial enhancement. There is no new midline shift or extra-axial fluid collection. Other mild T2 and FLAIR hyperintense signal abnormality of the supratentorial parenchyma is similar. Ventricular size is stable, within normal limits. There is preservation of the major arterial intracranial flow voids at the skull base. There is slightly disconjugate gaze. Paranasal sinuses are aerated. Cerebellar tonsils are normal in location. There is no new abnormality of the pineal gland or pituitary gland. Impression: 1. There is minimal residual enhancement of previously seen right frontal lesion, slightly less apparent. No new abnormal intracranial enhancement is identified. Electronically signed by: Torin Grimes MD (03/06/2019 11:15 AM) [email or web address]
== END | disposition home or self-care (01) ==
LOC: MRI 09:12
PROVIDERS: ATTEND Radiology Radiation Oncology
DX: C34.31 Malignant neoplasm of lower lobe, right bronchus or lung (principal); C79.31 Secondary malignant neoplasm of brain
CPT/HCPCS: 70553; A9575

== ENCOUNTER → 2019-05-14 | Outpatient (CLI) | payer OTHER ==
[2018-05-16 13:13] VITALS: BP 89/54
[~2019-05-14] MED LIST changes: -GADOTERATE 7.5 MMOL/15ML VIAL. IVP ONE; +IOHEXOL 240 MG/ML 50ML VIAL. PO ONE; +IOHEXOL 300 MG/ML 100ML VIAL. IV ONE
--- NOTE | 2019-05-14 16:50 | RAD ---
CT chest, abdomen, pelvis with contrast Indication: Small cell lung cancer Technique: Postcontrast CT imaging was performed of the chest, abdomen, pelvis, multiplanar reconstruction images submitted. Oral contrast was also given. One or more of the following individualized dose reduction techniques were utilized for this examination: 1. Automated exposure control 2. Adjustment of the mA and/or kV according to patient size 3. Use of iterative reconstruction technique. Comparison: January 03, 2019 CHEST: Findings: More reticular linear appearing right perihilar density is similar. Small 0.4 cm subpleural right lower lobe nodule image 34 series 2 is unchanged. Mild reticular density extending to the posterior pleural surface more superiorly of the right hemithorax is stable. 0.3 cm left lower lobe nodule image 50 series 2 is stable. There is again emphysema. There is no new infiltrate, pleural pericardial fluid, or pneumothorax. There is again left internal jugular port catheter with tip terminating in superior vena cava. Thoracic aortic caliber is within limits, no intraluminal flap. No new significant enlarged nodes are identified of the chest. There is some coronary calcification. Vertebral body stature is similar, mild superior height loss of T6. IMPRESSION: 1. Thoracic findings are stable, no new suspicious pulmonary nodularity or lymphadenopathy. 2. There is emphysema. 3. There is some coronary calcification. Abdomen pelvis FINDINGS: There is no adrenal nodularity. Both kidneys enhance, no hydronephrosis. No new focal abnormality is identified of the pancreas or spleen. Foci of hyperenhancement of the left lobe of the liver about 1.7 cm transverse is similar, no new hepatic lesion identified. There is cholelithiasis. Bowel is not significantly dilated. There is no free fluid or free air. There is scattered calcified and noncalcified plaque of the normal caliber abdominal aorta. No new significant lymphadenopathy is identified. Urinary bladder is somewhat distended. There is multilevel lumbar facet degenerative change. There is osteoarthritic change of the right hip. IMPRESSION: 1.No new abnormality is identified. There is stable hyperenhancing lesion of the lateral left lobe of the liver which may be hemangioma. 2. There is cholelithiasis. Electronically signed by: Torin Grimes MD (05/14/2019 4:47 PM) [id number]
== END | disposition home or self-care (01) ==
LOC: CT 10:04
PROVIDERS: ATTEND Internal Medicine Hematology & Oncology
DX: C34.90 Malignant neoplasm of unspecified part of unspecified bronchus or lung (principal); K80.20 Calculus of gallbladder without cholecystitis without obstruction; M16.11 Unilateral primary osteoarthritis, right hip; K76.9 Liver disease, unspecified; I70.0 Atherosclerosis of aorta
CPT/HCPCS: 71260; 74177; Q9966; Q9967

== ENCOUNTER → 2019-08-07 | Outpatient (CLI) | payer OTHER ==
[2018-05-16 13:13] VITALS: BP 89/54
[~2019-08-07] MED LIST changes: +CONTRAST GIVEN. MC PRN
--- NOTE | 2019-08-07 12:14 | RAD ---
CT CHEST ABD PELVIS W/CONTRAST Indication: Small cell lung cancer Technique: Postcontrast CT imaging was performed of the chest, abdomen, pelvis, multiplanar reconstruction images submitted. Oral contrast was also given. One or more of the following individualized dose reduction techniques were utilized for this examination: 1. Automated exposure control 2. Adjustment of the mA and/or kV according to patient size 3. Use of iterative reconstruction technique. Comparison: 05/14/2019 CHEST: Findings: There is again some right perihilar reticular density overall similar in appearance. Reticular density posteriorly of the superior right hemithorax is unchanged. Tiny subpleural right lower lobe nodule image 34 series 2 about 3-4 mm is stable. There is a 4 mm left lower lobe nodule image 51 series 2, similar dating back to October 2017 exam. Tiny 1 to 2 mm left lower lobe nodule is 39 series 2 is stable. There is no new suspicious lung nodularity, pleural or pericardial fluid, or pneumothorax. There is left internal jugular port catheter, tip in the superior vena cava. There is again emphysema with upper zone predominance. Mild superior height loss of T6 vertebral body is unchanged. There is again some coronary calcification. Thoracic aortic caliber is stable. No new significant chest lymphadenopathy is identified. IMPRESSION: 1. Thoracic findings as stated are unchanged, no new suspicious pulmonary nodularity or lymphadenopathy. 2. There is again emphysema. Abdomen pelvis FINDINGS: There is again focus of hyperenhancement of the left lobe of the liver about 1.7 cm transverse, unchanged. No new abnormality is identified of the liver, pancreas, or spleen. There is no adrenal nodularity. Both kidneys enhance, no hydronephrosis. There is cholelithiasis. Bowel is not dilated. There is no new inflammatory change about the bowel. There is no free fluid or free air. The urinary bladder is again somewhat distended. No new significantly enlarged nodes are identified. There is scattered mostly noncalcified plaque of the abdominal aorta. There has been interval development of mild superior L4 endplate compression deformity. IMPRESSION: 1. There is again hyperenhancing lesion of the left lobe of the liver which could be a hemangioma. There is no new lymphadenopathy or other CT evidence of new metastatic disease to the abdomen or pelvis. 2. There has been development of mild superior L4 endplate compression deformity, no osseous retropulsion. 3. There is cholelithiasis. Electronically signed by: Torin Grimes MD (08/07/2019 12:11 PM) [id number]
== END | disposition home or self-care (01) ==
LOC: CT 09:52
PROVIDERS: ATTEND Family Medicine
DX: C34.90 Malignant neoplasm of unspecified part of unspecified bronchus or lung (principal); K76.89 Other specified diseases of liver; K80.20 Calculus of gallbladder without cholecystitis without obstruction; R91.8 Other nonspecific abnormal finding of lung field; J43.9 Emphysema, unspecified; N32.89 Other specified disorders of bladder; I25.10 Atherosclerotic heart disease of native coronary artery without angina pectoris; I70.0 Atherosclerosis of aorta; M43.8X6 Other specified deforming dorsopathies, lumbar region
CPT/HCPCS: 71260; 74177; Q9966; Q9967

== ENCOUNTER → 2021-04-27 | Outpatient (CLI) | payer OTHER ==
[2018-05-16 13:13] VITALS: BP 89/54
[~2021-04-27] MED LIST changes: -CITA40TA5 PO; +CITA40TA6 PO; -CONTRAST GIVEN. MC PRN; -IOHEXOL 240 MG/ML 50ML VIAL. PO ONE; -IOHEXOL 300 MG/ML 100ML VIAL. IV ONE
[2021-04-27 11:08] LABS: BASO # 0.1 x10^3/uL (0.0-0.2); BASO % 1 % (0-3); EOS # 0.2 x10^3/uL (0.0-0.7); EOS % 3 % (0-3); HEMOGLOBIN 12.3 g/dL (13.0-17.5); LYMPH # 0.9 x10^3/uL (1.0-4.8); LYMPH % 16 % (24-48); MEAN CORPUSCULAR HEMOGLOBIN 29 pg (25-35); MEAN CORPUSCULAR HGB CONC 33 g/dL (31-37); MEAN CORPUSCULAR VOLUME 87 fL (79-100); MONO # 0.7 x10^3/uL (0.0-1.1); MONO % 11 % (0-9); NEUT % 69 % (31-73); PLATELET COUNT 256 x10^3/uL (140-400); RED BLOOD COUNT 4.24 x10^6/uL (4.30-5.70); RED CELL DISTRIBUTION WIDTH 13.6 % (11.5-14.5); WHITE BLOOD COUNT 5.8 x10^3/uL (4.0-11.0)
[2021-04-27 11:20] LABS: CALCIUM 8.3 mg/dL (8.5-10.1); CREATININE 1.1 mg/dL (0.7-1.3); GFR 68.3; POTASSIUM 4.1 mmol/L (3.5-5.1)
[2021-04-27 11:26] LABS: ALBUMIN 3.6 g/dL (3.4-5.0); ALBUMIN/GLOBULIN RATIO 1.1 (1.0-1.7); TOTAL BILIRUBIN 0.4 mg/dL (0.2-1.0)
== END ==
LOC: ONCLAB 10:41
PROVIDERS: ATTEND Internal Medicine Hematology & Oncology
DX: C34.31 Malignant neoplasm of lower lobe, right bronchus or lung (principal)
CPT/HCPCS: 36415; 80053; 85025

== ENCOUNTER → 2021-05-25 | Outpatient (CLI) | payer OTHER ==
[2018-05-16 13:13] VITALS: BP 89/54
[2021-05-25 12:24] LABS: BASO # 0.1 x10^3/uL (0.0-0.2); BASO % 1 % (0-3); EOS # 0.3 x10^3/uL (0.0-0.7); EOS % 5 % (0-3); HEMATOCRIT 36.9 % (39.0-53.0); HEMOGLOBIN 12.2 g/dL (13.0-17.5); LYMPH # 1.1 x10^3/uL (1.0-4.8); LYMPH % 19 % (24-48); MEAN CORPUSCULAR HEMOGLOBIN 29 pg (25-35); MEAN CORPUSCULAR HGB CONC 33 g/dL (31-37); MEAN CORPUSCULAR VOLUME 89 fL (79-100); MONO # 0.7 x10^3/uL (0.0-1.1); MONO % 12 % (0-9); NEUT # 3.7 x10^3/uL (1.8-7.7); NEUT % 64 % (31-73); PLATELET COUNT 257 x10^3/uL (140-400); RED BLOOD COUNT 4.17 x10^6/uL (4.30-5.70); RED CELL DISTRIBUTION WIDTH 13.3 % (11.5-14.5); WHITE BLOOD COUNT 5.8 x10^3/uL (4.0-11.0)
[2021-05-25 12:27] LABS: ALBUMIN 3.9 g/dL (3.4-5.0); ALBUMIN/GLOBULIN RATIO 1.3 (1.0-1.7); CREATININE 1.1 mg/dL (0.7-1.3); GFR 68.3; TOTAL BILIRUBIN 0.3 mg/dL (0.2-1.0)
== END ==
LOC: ONCLAB 11:52
PROVIDERS: ATTEND Internal Medicine Hematology & Oncology
DX: C34.31 Malignant neoplasm of lower lobe, right bronchus or lung (principal)
CPT/HCPCS: 36415; 80053; 85025

== ENCOUNTER → 2021-06-15 | Outpatient (CLI) | payer MEDICARE ==
[2018-05-16 13:13] VITALS: BP 89/54
[~2021-06-15] MED LIST changes: +CONTRAST GIVEN. MC PRN; +GADOTERATE 7.5 MMOL/15ML VIAL. IVP ONE; +IOHEXOL 240 MG/ML 50ML VIAL. PO ONE; +IOHEXOL 300 MG/ML 100ML VIAL. IV ONE
--- NOTE | 2021-06-15 11:23 | RAD ---
EXAM: Brain MRI with and without contrast. HISTORY: Small cell lung cancer restaging. TECHNIQUE: Multiplanar, multisequence magnetic resonance imaging of the brain was performed prior to and following the administration of intravenous contrast. COMPARISON: 03/06/2019 and 10/17/2018. FINDINGS: No enhancing lesion is seen. The previously demonstrated enhancing lesion within the left f rontal lobe has resolved. There has been interval increase in a focus of suspected encephalomalacia a nd surrounding gliosis in this location. The possibility of increasing edema is not excluded. There i s no mass effect or midline shift. There is no hydrocephalus. There is no hemorrhage. There are few scattered foci of signal change within the cerebral white matter, most commonly due to chronic small vessel disease in patients of this age. The orbits are unremarkable. There is an incide ntal right nicholas bullosa. The paranasal sinuses and mastoid air cells are unremarkable. There are no rmal flow voids within the cerebral vessels. There is no suspicious calvarial lesion. IMPRESSION: 1. No new, residual or recurrent enhancing intracranial lesion. There has been slight interval increa se in suspected focal encephalomalacia at the site of a prior enhancing lesion within the right front al lobe. There has been interval increase in surrounding signal abnormality likely due to gliosis. Th e possibility of increasing edema related to recurrent nonenhancing neoplasm is not excluded. Continu ed short-term follow-up is recommended. 2. No acute intracranial finding. 3. Bilateral cerebral white matter changes, stable compared to the prior study and likely due to laboratory chief maria luisa small vessel disease in a patient of this age. Electronically signed by: Rocio Bruner MD (06/15/2021 10:55 AM) [facility]
--- NOTE | 2021-06-15 11:23 | RAD ---
EXAMINATION: CT chest, abdomen and pelvis with IV contrast. INDICATION:61 years, Male, small cell lung cancer. Follow-up exam.. TECHNIQUE: Axial CT images of the chest, abdomen and pelvis were obtained. Coronal and sagittal refor matted performed. COMPARISON: 08/07/2019 and 05/14/2019. Exposure: One or more of the following individualized dose reduction techniques were utilized for thi s examination: 1. Automated exposure control 2. Adjustment of the mA and/or kV according to patient size 3. Use of iterative reconstruction technique. FINDINGS: CHEST: Central airways are patent. [id number] centrilobular and paraseptal pulmonary emphysema, unchan ged. Right upper and lower lobes linear scarring, unchanged. Calcified granulomas in the right lower lobe are unchanged. Few scattered bilateral solid pulmonary nodules are unchanged since April 2019 , most likely benign. For example anterior left upper lower lobe solid pulmonary nodule in series 3 i mage 49 measures 5 mm. No focal consolidation, pleural effusion or pneumothorax. Thyroid and esophagu s are unremarkable. Small hiatal hernia. No lymphadenopathy in the chest by size criteria. Calcified right hilar lymph nodes. No cardiomegaly. No pericardial effusion. Mild coronary artery atherosclerot ic calcifications. Normal caliber thoracic aorta and pulmonary arteries. Left Mediport catheter termi nates in the distal SVC. ABDOMEN/PELVIS: Essentially unchanged heterogeneous arterial enhancing lesion in hepatic segment 3 which appears more homogeneous enhancement on venous phase images, most consistent with hemangioma. No suspicious focal hepatic lesion. Calcified cholelithiasis without acute cholecystitis. No biliary ductal dilation. Sp lisa and pancreas are unremarkable. No adrenal nodule. No hydronephrosis or nephrolithiasis in either kidney. No bowel dilation. Mild aortoiliac atherosclerotic calcifications without narrowing or dilat ion. Mesenteric arteries and portal veins are patent. No pneumoperitoneum or ascites. No lymphadenopa thy in the abdomen or pelvis by size criteria. Unremarkable urinary bladder and prostate. MUSCULOSKELETAL STRUCTURES: No suspicious osseous lesion or acute process. Degenerative changes in the spine. Small fat-containin g umbilical hernia. IMPRESSION: 1. No local tumor recurrence or metastatic disease. 2. Stable left hepatic lobe hemangioma. 3. Multiple small calcified cholelithiasis. 4. Other chronic/incidental findings, as described above. Electronically signed by: Sami Florentino MD (06/15/2021 11:09 AM) [id number]
== END ==
LOC: MRI 09:05
PROVIDERS: ATTEND Internal Medicine Hematology & Oncology
DX: D18.03 Hemangioma of intra-abdominal structures (principal); K80.20 Calculus of gallbladder without cholecystitis without obstruction; J43.2 Centrilobular emphysema; R90.82 White matter disease, unspecified; I25.10 Atherosclerotic heart disease of native coronary artery without angina pectoris; R91.8 Other nonspecific abnormal finding of lung field; I89.8 Other specified noninfective disorders of lymphatic vessels and lymph nodes; J84.10 Pulmonary fibrosis, unspecified; I70.8 Atherosclerosis of other arteries; K44.9 Diaphragmatic hernia without obstruction or gangrene; K42.9 Umbilical hernia without obstruction or gangrene; M47.819 Spondylosis without myelopathy or radiculopathy, site unspecified
CPT/HCPCS: 70553; 71260; 74177; A9575; Q9966; Q9967